=== PATIENT | male | born 1990 | race American Indian/Alaskan Native ===

== ENCOUNTER 2017-04-17 20:50 | Emergency (ER) | payer BC, OTHER ==
[2017-04-18] MEDS ORDERED: KEFLEX PO ONE (01:22)
[2017-04-18] MEDS ORDERED: LIDOCAINE VISCOUS 2% PO ONE (01:22)
[2017-04-18] MEDS ORDERED: XYLOCAINE 1% MPF 5 mL INFILTRATI ONE (01:22)
[2017-04-18] MEDS ORDERED: NACL 0.9% IR ONE (01:22)
--- NOTE | 2017-04-18 01:22 | Emergency Department Report ---
ED Laceration HPI - HPI Chief Complaint: Wound/Laceration Stated Complaint: DEEP CUT ON RT INDEX FINGER Time Seen by Provider: 04/17/17 23:48 Occurred When: Today Location: Upper Extremity (right index finger laceration) Severity: moderate (12/15) Tetanus Status: Not up to Date Laceration Symptoms: Yes Pain (right index finger laceration site), No Foreign Body Sensation, No Numbness, No Weakness Other History: Patient he reports that he injured his right index finger while he was opening a can put manual can ulnar. He said ear was bleeding a lot and he put pressure on the site. Pain is 6 out of 10 and throbbing pain. Denies any numbness or tingling to fingers or hands. Tetanus shot is not up-to-date. He said it was old can open her. Did not take any pain medication prior to coming to hospital. Pain is worse with movement and touch better with resting. ED Review of Systems ROS: Stated complaint: DEEP CUT ON RT INDEX FINGER Other details as noted in HPI Comment: All other systems reviewed and negative Constitutional: no symptoms reported Respiratory: no symptoms reported Cardiovascular: denies: chest pain, palpitations, dyspnea on exertion, edema, syncope, paroxysmal nocturnal dyspnea Gastrointestinal: denies: abdominal pain, nausea, vomiting, diarrhea Musculoskeletal: arthralgia. denies: joint swelling, myalgia Skin: other (laceration rt index finger) Neurological: denies: headache, numbness, paresthesias, confusion, abnormal gait , vertigo ED Past Medical Hx - Past Medical History Previous Medical History?: No - Surgical History Past Surgical History?: Yes Additional Surgical History: RIGHT LEG - Family History Family history: no significant (single) - Social History Smoking Status: Current Every Day Smoker Substance Use Type: None Other Social History: single - Medications Home Medications: Home Medications Medication Instructions Recorded Confirmed Last Taken Type Ibuprofen [Motrin] 800 mg PO Q8H PRN #14 tablet 05/24/14 Unknown Rx Acetaminophen/Codeine [Tylenol 1 tab PO Q6H PRN #12 tab 04/18/17 Unknown Rx /Codeine # 3 tab] Cephalexin [Keflex] 500 mg PO Q8HR #21 cap 04/18/17 Unknown Rx Ibuprofen [Motrin] 600 mg PO Q8H PRN #15 tablet 04/18/17 Unknown Rx Laceration Physical Exam - Exam General: Vital signs noted. No distress. Alert and acting appropriately. This is a 27-year-old male well-nourished well-developed in no acute distress. Lungs: Air to auscultation bilaterally no rhonchi wheezes or rales. CV: S1, S2. Regular rate rhythm. Negative murmur EXT: Clubbing, cyanosis or edema. +2 pulses to all extremities. No neurovascular compromise. No joint deformity or bony abnormality. No crepitus or effusion. +5/5 strength in all extremities Psych: Normal mood and behavior. Wound Length (cm): 2 Laceration Location: Upper Extremity (rt mid index finger) Laceration Exam: Yes Normal Distal CMS (patient has good pulses at 2+2 radial and ulnar bilaterally), No Foreign Body, No Exposed Tendon, Vessel, or Nerve, No Tendon Injury (patient able to move fingers to right hand without any difficulties. Denies any radiating pain to his hands. Pain is localized to his rt index finger.) ED Course Vital Signs 04/17/17 21:30 Temperature 98.9 F Pulse Rate 72 Respiratory 20 Rate Blood Pressure 132/78 O2 Sat by Pulse 99 Oximetry - Reevaluation(s) Reevaluation #1: 04/18/17 03:07 Patient received Keflex 1 g by mouth and emergency room, tetanus vaccine streaks 0.5 mL. Viscous lidocaine applied to site prior to laceration repair. See procedure note for details of laceration repair - Laceration /Wound Repair Right Medial Dorsal Finger Wound Location: upper extremity (right medial index finger) Wound Length (cm): 2 Wound's Depth, Shape: superficial, linear Wound Explored: no foreign body removed Irrigated w/ Saline (ccs): 350 Betadine Prep?: Yes Anesthesia: 1% Lidocaine (0.5 mL) Volume Anesthetic (ccs): 0 (0.5 mL) Wound Debrided: moderate Wound Repaired With: sutures Suture Size/Type: 3:0, proline Number of Sutures: 12 Layer Closure?: No Sterile Dressing Applied?: Yes (sterile bulky dressing placed the site.) ED Medical Decision Making - Medical Decision Making ED course: Patient status post laceration to medial left index finger. Laceration repair under sterile procedure. See procedure note for details of laceration repair. Patient received viscous lidocaine topical for pain control prior to laceration repair, Boostrix 0.5 mL given to update tetanus and Keflex 1 g by mouth initiated to prevent infection. Laceration repaired under sterile procedures see procedure note for detail. Patient tolerated procedure well. Patient discharged home a prescription for Tylenol 3, Motrin and Keflex and told to return to emergency room in 7-10 days to have sutures removed. He voiced understand the discharge instructions and treatment plan and discharged home in stable condition. Critical care attestation.: If time is entered above; I have spent that time in minutes in the direct care of this critically ill patient, excluding procedure time. ED Disposition Clinical Impression: Laceration of index finger of right hand without complication, Finger pain, right Injury of right index finger Qualifiers: Encounter type: initial encounter Qualified Code(s): S69.91XA - Unspecified injury of right wrist, hand and finger(s), initial encounter Disposition: TO HOME OR SELFCARE Is pt being admited?: No Does the pt Need Aspirin: No Condition: Stable Instructions: Finger Laceration (ED), Arthralgia (ED), Suture Care (ED) Additional Instructions: Please return to the emergency room and 7-10 days to have stitches removed from right index finger Keep Affected area clean and dry Reason leave dry bulky dressing on for 24 hours before removing Take antibiotic as prescribed Please avoid doing any vigorous activity to right hand and index finger for the next 4 days. Prescriptions: Acetaminophen/Codeine [Tylenol /Codeine # 3 tab] 1 tab PO Q6H PRN #12 tab PRN Reason: Pain Cephalexin [Keflex] 500 mg PO Q8HR #21 cap Ibuprofen [Motrin] 600 mg PO Q8H PRN #15 tablet PRN Reason: Pain Referrals: return to, emergency department [Other] - 7-10 days (To have stitches removed.) PRIMARY CARE [Primary Care Provider] - 04/19/17 Forms: Accompanied Note, Work/School Release Form(ED)
[2017-04-18] MEDS ORDERED: BOOSTRIX IM ONE (03:06)
[2017-04-18 04:14] VITALS: BP 126/72
== END 2017-04-18 04:00 | disposition home or self-care (01) ==
LOC: ED 20:50
DX: S61.210A Laceration without foreign body of right index finger without damage to nail, initial encounter (principal); F17.200 Nicotine dependence, unspecified, uncomplicated; W45.8XXA Other foreign body or object entering through skin, initial encounter; Y93.9 Activity, unspecified; Y92.9 Unspecified place or not applicable; Y99.9 Unspecified external cause status
CPT/HCPCS: 90471; 90715; 99282

== ENCOUNTER 2019-02-23 10:33 | Emergency (ER) | payer BC, OTHER ==
[2019-02-23 10:45] VITALS: BP 115/85
--- NOTE | 2019-02-23 14:12 | Emergency Department Report ---
- General Chief Complaint: Laceration/Recheck/Suture Stated Complaint: LAC LT ARM/STD CHECK Time Seen by Provider: 02/23/19 13:09 Source: patient Mode of arrival: Ambulatory Limitations: No Limitations - History of Present Illness Initial Comments: Mrs. Doyel is a 29-year-old male who presents with left upper forearm laceration. He cut his forearm on a metal pipe. He wants to make sure that his tetanus is up-to-date. Also requesting STD check -: Sudden, This morning Extremity Location: Left: Forearm Place: work Patient Tetanus UTD: Yes (2016 here in the emergency department) Context: accidental Associated Symptoms: none Treatments Prior to Arrival: bandage - Related Data Previous Rx's Medication Instructions Recorded Last Taken Type Ibuprofen [Motrin] 800 mg PO Q8H PRN #14 tablet 05/24/14 Unknown Rx Acetaminophen/Codeine [Tylenol 1 tab PO Q6H PRN #12 tab 04/18/17 Unknown Rx /Codeine # 3 tab] Ibuprofen [Motrin] 600 mg PO Q8H PRN #15 tablet 04/18/17 Unknown Rx cephALEXin [Keflex] 500 mg PO Q8HR #21 cap 04/18/17 Unknown Rx Allergies Allergy/AdvReac Type Severity Reaction Status Date / Time No Known Allergies Allergy Verified 05/24/14 21:40 ED Review of Systems ROS: Stated complaint: LAC LT ARM/STD CHECK Other details as noted in HPI Constitutional: denies: fever, malaise Respiratory: denies: cough, shortness of breath Gastrointestinal: denies: abdominal pain, nausea, vomiting Skin: lesions. denies: rash ED Past Medical Hx - Past Medical History Previous Medical History?: No - Surgical History Additional Surgical History: RIGHT LEG - Social History Smoking Status: Never Smoker Substance Use Type: Alcohol - Medications Home Medications: Home Medications Medication Instructions Recorded Confirmed Last Taken Type Ibuprofen [Motrin] 800 mg PO Q8H PRN #14 tablet 05/24/14 Unknown Rx Acetaminophen/Codeine [Tylenol 1 tab PO Q6H PRN #12 tab 04/18/17 Unknown Rx /Codeine # 3 tab] Ibuprofen [Motrin] 600 mg PO Q8H PRN #15 tablet 04/18/17 Unknown Rx cephALEXin [Keflex] 500 mg PO Q8HR #21 cap 04/18/17 Unknown Rx ED Physical Exam - General Limitations: No Limitations General appearance: alert, in no apparent distress - Head Head exam: Present: atraumatic, normocephalic - ENT ENT exam: Present: mucous membranes moist - Neck Neck exam: Present: normal inspection, full ROM - Respiratory Respiratory exam: Absent: respiratory distress - Neurological Exam Neurological exam: Present: alert, oriented X3 - Psychiatric Psychiatric exam: Present: normal affect, normal mood - Skin Skin exam: Present: warm, dry, other (4 cm gaping wound laceration with subcutaneous tissue exposure left dorsal mid forearm no active bleeding edges are 2 cm apart) ED Course Vital Signs 02/23/19 10:43 Temperature 98.0 F Pulse Rate 60 Respiratory 18 Rate Blood Pressure 115/85 O2 Sat by Pulse 99 Oximetry - Laceration /Wound Repair Left Arm Wound Location: upper extremity Wound's Depth, Shape: superficial Wound Explored: clean Betadine Prep?: Yes Anesthesia: Lidocaine w/ Epi Wound Repaired With: sutures Suture Size/Type: 3:0, proline Sterile Dressing Applied?: Yes Progress: 3 sutures horizontal mattress, 1 suture simple 3-0 Prolene good edges approximation and eversion Gauze dressing with wrapping cover the wound ED Medical Decision Making - Medical Decision Making Forearm laceration with laceration repair by sutures. Tetanus status up-to-date. I referred patient to urgent care center for STD testing. Critical care attestation.: If time is entered above; I have spent that time in minutes in the direct care of this critically ill patient, excluding procedure time. ED Disposition Clinical Impression: Laceration of left forearm Disposition: DC-01 TO HOME OR SELFCARE Is pt being admited?: No Does the pt Need Aspirin: No Condition: Stable Instructions: Suture Care (ED) Additional Instructions: Please have your sutures removed in 10-14 days. Forms: Work/School Release Form(ED)
== END 2019-02-23 14:13 | disposition home or self-care (01) ==
LOC: ED 10:33
DX: S51.812A Laceration without foreign body of left forearm, initial encounter (principal); Z79.899 Other long term (current) drug therapy; W26.8XXA Contact with other sharp object(s), not elsewhere classified, initial encounter; Y93.89 Activity, other specified; Y92.89 Other specified places as the place of occurrence of the external cause; Y99.8 Other external cause status